=== PATIENT | female | born 1980 | race Caucasian/White ===

== ENCOUNTER 2017-10-14 03:37 | Emergency (ER) | payer OTHER ==
[~2017-10-14] VITALS: Ht 165.1 cm; Wt 56.7 kg
[2017-10-14] MEDS ORDERED: OXYCODONE/APAP 5-325 MG TABLET PO ONE (04:15)
[2017-10-14] MEDS ORDERED: NEOMY/BACITRA/POLYMYXIN B OINT UD PACKET TP ONE ×2 (04:15→04:33)
[2017-10-14] MEDS ORDERED: LIDOCAINE HCL 1% 20 ML VIAL TP ONE (04:15)
[2017-10-14] MEDS ORDERED: ONDANSETRON ODT 4 MG TAB.RAPDIS SL ONE (04:15)
[2017-10-14] MEDS ORDERED: CEFTRIAXONE 1 G VIAL IM ONE (04:15)
[2017-10-14] MEDS ORDERED: TDAP DIPH,PERTUSS,TET VAC/PF 0.5 ML DISP.SYRIN IM ONE ×2 (04:15→04:34)
[2017-10-14] MEDS ORDERED: ONDANSETRON ODT 4 MG TAB.RAPDIS ONE (04:30)
[2017-10-14] MEDS ORDERED: OXYCODONE/APAP 5-325 MG TABLET ONE (04:30)
[2017-10-14] MEDS ORDERED: CEFTRIAXONE 1 G VIAL ONE (04:34)
[2017-10-14] MEDS ORDERED: LIDOCAINE HCL 1% 20 ML VIAL ONE (04:34)
--- NOTE | 2017-10-14 04:55 | NUR ---
Patient discharged to home in stable conditon. Written and verbal after care instructions given. Patient verbalizes understanding of instructions.
== END 2017-10-14 04:57 | disposition home or self-care (01) ==
LOC: ER 03:44
DX: S81.851A Open bite, right lower leg, initial encounter (principal); S81.811A Laceration without foreign body, right lower leg, initial encounter; W54.0XXA Bitten by dog, initial encounter; Y92.89 Other specified places as the place of occurrence of the external cause; Y93.89 Activity, other specified; Y99.8 Other external cause status
CPT/HCPCS: 90715; A4217; A4663; J0696; J3490; Q0162